=== PATIENT | male | born 1945 | race Caucasian/White ===

== ENCOUNTER → 2018-12-05 | Outpatient (CLI) | payer OTHER | END | disposition home or self-care (01) | LOC: PCVCCLINIC 11:41 | PROVIDERS: ATTEND Internal Medicine | DX: R55 Syncope and collapse (principal); I10 Essential (primary) hypertension; E78.5 Hyperlipidemia, unspecified; E03.9 Hypothyroidism, unspecified; Z88.8 Allergy status to other drugs, medicaments and biological substances | CPT/HCPCS: 36415; 80061; 93005; G0463 ==

== ENCOUNTER → 2018-12-18 | Outpatient (CLI) | payer OTHER ==
[~2018-12-18] MED LIST: REGADENOSON 0.4 MG/5 ML DISP.SYRIN. IV ONE
--- NOTE | 2018-12-19 10:17 | PCVCIMAG ---
APPROVED REPORT Study performed: 12/18/2018 07:37:34 EXAM: Comprehensive 2D, Doppler, and color-flow Echocardiogram Patient Location: Echo lab Status: routine BSA: 2.18 HR: 57 bpmBP: 150/78 mmHg Rhythm: Bradycardia Other Information Study Quality: Adequate Risk Factors: Cardiac Risk Factors: HTN, Hyperlipidemia Indications Syncope 2D Dimensions IVSd: 13.83 (7-11mm) LVDd: 45.71 mm PWd: 13.17 (7-11mm)Ascending Ao: 34.99 (22-36mm) LVDs: 31.63 (25-40mm) Left Atrium: 36.69 (27-40mm) Aortic Root: 34.08 mm LV Single Plane 4CH: 46.92 % LV Single Plane 2CH: 63.76 % Volumes Left Atrial Volume (Systole) Single Plane 4CH: 51.80 mLSingle Plane 2CH: 83.18 mL LA ESV Index: 31.00 mL/m2 Aortic Valve AoV Peak Eyal.: 1.26 m/s AO Peak Gr.: 6.34 mmHgLVOT Max P.79 mmHg LVOT Max V: 1.09 m/s AI Vmax: 5.24 m/s AI [place]: 2.43 m/s2 AI PHT: 624.82 ms Mitral Valve E/A Ratio: 1.5 MV Decel. Time: 241.12 ms MV E Max Eyal.: 0.67 m/s MV A Eyal.: 0.45 m/s IVRT: 124.57 ms Pulmonary Valve PV Peak Eyal.: 0.89 m/sPV Peak Gr.: 3.14 mmHg Pulmonary Vein P Vein S: 0.31 m/sP Vein A: 0.33 m/s P Vein D: 0.37 m/sP Vein A Dur.: 145.3 msec P Vein S/D Ratio: 0.84 Tricuspid Valve TR Peak Eyal.: 2.63 m/s TR Peak Gr.: 27.70 mmHg TV Vmax: 0.48 m/s Left Ventricle The left ventricle is normal size. There is normal LV segmental wall motion. Mild concentric left ventricular hypertrophy. Left ventricular systolic function is normal. The left ventricular ejection fraction is within the normal range. LVEF is 55-60%. Grade I - abnormal relaxation pattern. Right Ventricle The right ventricle is normal size. The right ventricular systolic function is normal. Atria The left atrium size is normal. The right atrium size is normal. Aortic Valve The aortic valve is normal in structure. Mild aortic regurgitation. There is no aortic valvular stenosis. Mitral Valve The mitral valve is normal in structure. Mild mitral regurgitation. No evidence of mitral valve stenosis. Tricuspid Valve The tricuspid valve is normal in structure. Mild tricuspid regurgitation with PAP of 35 mmHg. Pulmonic Valve The pulmonary valve is normal in structure. There is no pulmonic valvular regurgitation. Great Vessels The aortic root is normal in size. IVC is normal in size and collapses >50% with inspiration. Pericardium There is no pericardial effusion. There is no pleural effusion. <Conclusion> The left ventricle is normal size. LVEF is 55-60%. The aortic valve is normal in structure. Mild aortic regurgitation. The mitral valve is normal in structure. Mild mitral regurgitation. The tricuspid valve is normal in structure. Mild tricuspid regurgitation with PAP of 35 mmHg. There is no pericardial effusion.
--- NOTE | 2018-12-20 11:26 | PCVCIMAG ---
APPROVED REPORT Imaging Protocol: Rest Tc-99m/Stress Tc-99m 1 day Study performed: 12/18/2018 09:18:52 Indication: Syncope Patient Location: Out-Patient Stress Nurse: Ayesha Isaacs RN, Natividad Turner RN OR Tech:Erika Davisdariel [facility] Ht: 6 ft 3 in Wt: 197 lbs BSA: 2.18 m2 HR: 63 bpm BP: 1758/85 mmHg BMI: 24.62 Rhythm: Sinus Rhythm Medical History Medical History: HTN, Hyperlipidemia Medications: Olmesartan Allergies: Cipro Cardiac Risk Factors: Age Pretest Chest Pain Characteristics: No chest pain Exercise History: Physically active Physical Disabilities: Knees Resting Data Rest SPECT myocardial perfusion imaging was performed in supine position 45 minutes following the intravenous injection of 10.5 mCi of Tc-99m Sestamibi. Time of rest injection: 0845 Administration Route: IV Administration Site: Right Arm Pharmacologic Stress Pharmacologic stress test was performed by injecting Regadenoson 0.4 mg IV push over 10-15 seconds immediately followed by the intravenous injection of 33.6 mCi of Tc-99m Sestamibi. Time of stress injection: 1020 Date: 12/18/2018 Administration Route: IV Administration Site: Right Arm Gated Stress SPECT was performed 45 minutes after stress injection. The images were gated to evaluate regional wall motion and calculate left ventricular ejection fraction. Stress Test Details Stress Test: Pharmacologic stress was paired with low level exercise. Reason for pharmacologic stress test: knee problems. HRMax Heart Rate (APMHR): 148 bpm Resting HR: 63 bpmTarget HR (85% APMHR): 125 bpm Max HR Achieved: 89 bpm % of APMHR: 60 Recovery HR: 68 bpm BP Resting BP: 178/85 mmHg Max BP: 143/68 mmHg Recovery BP: 149/69 mmHg ECG Resting ECG: Sinus Rhythm Stress ECG: Sinus Rhythm Arrhythmia: None Recovery ECG: Sinus Rhythm Clinical Reason for Termination: Completed protocol Stress Symptoms: Leg Fatigue Exercise duration: 4 min 00 sec Symptoms resolved with caffeine. Stress ECG Conclusion 1. Adequate response to intravenous Lexiscan 2. Inadequate heart rate for ECG diagnosis Perfusion There is a area of severely reduced uptake in the entire segment of the inferior wall which is seen on the stress images as well as the resting images. This area thickens and moves normally and is most consistent with attenuation artifact. Wall Motion Normal left ventricular wall motion. Nuclear Conclusion ECG Findings: non-diagnostic Clinical Findings: negative for ischemia Nuclear Findings: negative for ischemia Exercise Capacity: not assessed Left Ventricular Function: normal 1. Low risk study <Conclusion> 1. Adequate response to intravenous Lexiscan 2. Inadequate heart rate for ECG diagnosis
== END | disposition home or self-care (01) ==
LOC: PCVCIMAG 09:25
PROVIDERS: ATTEND Internal Medicine
DX: I08.3 Combined rheumatic disorders of mitral, aortic and tricuspid valves (principal); R55 Syncope and collapse; I10 Essential (primary) hypertension; E78.5 Hyperlipidemia, unspecified
CPT/HCPCS: 78452; 93017; 93306; A9500; J2785

== ENCOUNTER → 2019-01-09 | Outpatient (CLI) | payer OTHER | END | disposition home or self-care (01) | LOC: PCVCCLINIC 10:24 | PROVIDERS: ATTEND Internal Medicine | DX: R55 Syncope and collapse (principal); I10 Essential (primary) hypertension; E78.5 Hyperlipidemia, unspecified | CPT/HCPCS: G0463 ==

== ENCOUNTER → 2019-06-26 | Outpatient (CLI) | payer OTHER | END | disposition home or self-care (01) | LOC: PCVCCLINIC 12:47 | PROVIDERS: ATTEND Internal Medicine | DX: I48.0 Paroxysmal atrial fibrillation (principal); I10 Essential (primary) hypertension; E78.5 Hyperlipidemia, unspecified | CPT/HCPCS: 36415; 80061; G0463 ==